=== PATIENT | female | born 1950 | race Native Hawaiian/Other Pacific Islander ===

== ENCOUNTER → 2017-08-24 20:23 | Outpatient (CLI) | payer BC | END | disposition home or self-care (01) | LOC: AMB 20:23 | DX: Z04.1 Encounter for examination and observation following transport accident (principal) ==

== ENCOUNTER 2020-06-16 13:19 | Inpatient (IN) | payer OTHER ==
[~2020-06-16] VITALS: Ht 157.5 cm; Wt 95.1 kg
[2020-06-16 13:23] VITALS: BP 187/98; TEMP 99.1
[2020-06-16 13:53] LABS: SODIUM 136 mmol/L (136-145)
[2020-06-16 14:02] LABS: PLATELET COUNT 109 K/uL (152-353)
[2020-06-16 14:19] LABS: PARTIAL THROMBOPLASTIN TIME 30.2 SECONDS (24.5-33.6)
[2020-06-16 15:10] VITALS: BP 157/79
[2020-06-16 18:15] VITALS: BP 131/72; TEMP 98.1; Ht 157.5 cm; Wt 95.1 kg
[2020-06-16] MEDS ORDERED: COLCRYS 0.6MG0.6 MG PO (18:55)
[2020-06-16] MEDS ORDERED: METO50TA63 PO (18:57)
[2020-06-16] MEDS ORDERED: INDOMETHACIN SR75 MG PO (18:58)
[2020-06-16 20:20] VITALS: BP 143/69; TEMP 98.2
[2020-06-16 23:46] VITALS: BP 119/48; TEMP 97.6
[2020-06-17 03:31] VITALS: BP 123/55; TEMP 98.1
[2020-06-17 05:25] LABS: PLATELET COUNT 87 K/uL (152-353)
[2020-06-17 06:06] LABS: POTASSIUM 4.8 mmol/L (3.6-5.2)
[2020-06-17 08:00] VITALS: BP 144/67; TEMP 98.2
--- NOTE | 2020-06-17 09:00 | NUR ---
PT IN HF RESTING. SPO2 98% ON RA. NO DISTRESS NOTED. PT PLEASANT WITH NO COMPLAINTS. NS INFUSING AT 125 ML/HR WITHOUT DIFFICULTY. BED IN LOWEST POSITION, SRX2, CALL LIGHT IN REACH, PT INSTRUCTED TO CALL WITH ANY NEEDS. PT VERBALIZES UNDERSTANDING
--- NOTE | 2020-06-17 11:11 | NUR ---
BLANCA MISHRA CALLED TO STILL OPERATOR HELPER BY ALYSSA IN LAB. DANICA TRENDING DOWN. NO NEW ORDERS AT THIS TIME
[2020-06-17 12:00] VITALS: BP 120/72; TEMP 98.2
[2020-06-17] MEDS ORDERED: CLORAZ DIPOT7.5 MG PO (15:32)
[2020-06-17] MEDS ORDERED: PERCOCET1 TA1 PO (15:33)
[2020-06-17 16:00] VITALS: BP 167/75; TEMP 97.7
[2020-06-17 20:00] VITALS: BP 151/61; TEMP 98.8
--- NOTE | 2020-06-17 21:21 | NUR ---
PTBACK TO BED AFTER HAVING BATH, DENIES PAIN, SOB. IV NOTED FLUSHED, NOTED TO BE PATENT. CALL LIGHT IN EASY REACH, WILL CONTINUE TO MONITOR.
[2020-06-18] VITALS: BP 145/63; TEMP 98.3
--- NOTE | 2020-06-18 00:16 | NUR ---
ASSISTED PT UP TO BSC. PT NOTED TO REQUIRE INCREASED TIME WITH TRANSFERS D/T GOUT. PT TEARFUL AFTER GETTING BACK IN BED B/C.
--- NOTE | 2020-06-18 01:51 | NUR ---
PT SLEEPING QUIETLY, NAD NOTED AT THIS TIME. CALL LIGHT IN EASY REACH. WILL CONTINUE TO MONITOR.
[2020-06-18 04:00] VITALS: BP 138/61; TEMP 98.6
[2020-06-18 08:00] VITALS: BP 174/76; TEMP 97.9
[2020-06-18 10:16] LABS: PLATELET COUNT 131 K/uL (152-353)
[2020-06-18 10:47] LABS: POTASSIUM 4.3 mmol/L (3.6-5.2)
[2020-06-18 12:00] VITALS: BP 147/74; TEMP 97.7
[2020-06-18 16:00] VITALS: BP 165/68; TEMP 98.8
[2020-06-18 18:38] LABS: PLATELET COUNT 132 K/uL (152-353)
[2020-06-18 20:11] VITALS: BP 163/61; TEMP 97.9
[2020-06-19 00:05] VITALS: BP 153/60; TEMP 97.8
[2020-06-19 04:00] VITALS: BP 147/61; TEMP 98.3
[2020-06-19 05:10] LABS: PLATELET COUNT 114 K/uL (152-353)
[2020-06-19 05:22] LABS: POTASSIUM 4.2 mmol/L (3.6-5.2)
--- NOTE | 2020-06-19 05:57 | NUR ---
PT RESTING IN BED WITH EYES CLOSED AT THIS TIME WITH NO C/O. IV PATENT TO LFA AND INFUSING NS AT 125 WITHOUT DIFFICULTY. PT UTILIZES BSC. HAS SOME GENERALIZED WEAKNESS DUE TO GOUT. NOTED WITH NONPRODUCTIVE COUGH. ABLE TO VOICE NEEDS/CONCERNS. HAS EPISODES OF CRYING WITH CONCERNS OF HEALTH AND OF HER HUSBANDS HEALTH. ATTEMTS MADE TO ENCOURAGE PT. NO S/S OF DISTRESS AT THIS TIME. CALL LIGHT IN EASY REACH.
[2020-06-19 08:00] VITALS: BP 192/82; TEMP 98.8
[2020-06-19 12:00] VITALS: BP 157/71; TEMP 98.1
[2020-06-19 16:00] VITALS: BP 102/90; BP 165/90; TEMP 98
--- NOTE | 2020-06-19 16:45 | NUR ---
PATIENT HAD A BLADDER INCONTINENT EPISODE. SHE WAS TRYING TO GET TO THE BSV BUT DIDNT MAKE IT. BED LINEN CHANGED. WASH BASIN SET UP FOR PATIENT TO WASH OFF.
--- NOTE | 2020-06-19 16:47 | NUR ---
PATIENT DISCONNECTED FROM IV UNTILL AFTER HER BATH
[2020-06-19 19:55] VITALS: BP 140/47; TEMP 98.9
[2020-06-20] VITALS (7 sets, daily range): BP systolic 158–200; BP diastolic 61–86; TEMP 97.9–98.6
[2020-06-20 06:02] LABS: PLATELET COUNT 111 K/uL (152-353)
--- NOTE | 2020-06-20 06:59 | NUR ---
0420 PT ALERT SITTING UP IN RECLINER DENIES C/O PAIN/DISCOMFROT AT THIS TIME. IV PATENT TO LFA INFUSING NS @ 125 WITHOUT DIFFICULTY. UTILIZED BSC WITHOUT ASSIST THIS SHIFT BUT CONT TO HAVE WEAKNESS TO BLE DUE TO GOUT. ENCOURAGED PT TO CALL FOR ASSISTANCE NEEDED WHEN GETTING OOB, VOICED UNDERSTANDING. NO S/S OF DISTRESS AT THIS TIME. CALL LIGHT IN EASY REACH.
[2020-06-20 07:25] LABS: POTASSIUM 4.5 mmol/L (3.6-5.2)
--- NOTE | 2020-06-20 11:10 | NUR ---
DR. MEZA, RISK OFFICER, AT BEDSIDE SPEAKING WITH PATIENT. PHYSICIAN INSTRUCTED PATIENT TO FOLLOW UP IN HIS OFFICE IN FOUR (4) WEEKS. PATIENT V/O UNDERSTANDING. NO NEW ORDERS RECEIVED AT THIS TIME.
--- NOTE | 2020-06-20 18:48 | NUR ---
DR. BULLARD AT BEDSIDE WITH PATIENT, NO NEW ORDERS RECEIVED AT THIS TIME.
[2020-06-21 03:58] VITALS: BP 140/81; TEMP 98.1
[2020-06-21 05:54] LABS: PLATELET COUNT 113 K/uL (152-353)
[2020-06-21 06:11] LABS: POTASSIUM 4.2 mmol/L (3.6-5.2)
== END 2020-06-21 11:40 | disposition home or self-care (01) | DRG 177 ==
LOC: ED 13:19 → MED/SURG 15:00
PROVIDERS: Family Medicine; ADMIT Hospitalist
DX: U07.1 COVID-19 (principal); J18.8 Other pneumonia, unspecified organism; N17.8 Other acute kidney failure; E46 Unspecified protein-calorie malnutrition; R30.9 Painful micturition, unspecified; R11.10 Vomiting, unspecified; I10 Essential (primary) hypertension; Z91.19 Patient's noncompliance with other medical treatment and regimen; E66.01 Morbid (severe) obesity due to excess calories; Z68.36 Body mass index [BMI] 36.0-36.9, adult; M1A.9XX1 Chronic gout, unspecified, with tophus (tophi); E86.0 Dehydration
CPT/HCPCS: 36415; 36600; 80053; 81000; 82550; 82570; 82728; 82805; 83605; 83735; 83880; 84100; 84484; 84550; 85027; 85379; 85610; 85730; 86140; 87040; 93005; 94760; 96365; 96375; 99284; J0456; J0696; J1100; J1650; J1885; J1956; J2270; J2405; J3475

== ENCOUNTER 2023-07-02 12:00 | Observation (INO) | payer OTHER ==
[2023-07-02] VITALS (7 sets, daily range): BP systolic 116–171; BP diastolic 65–85; TEMP 98.2–100.5; Ht 162.6 cm; Wt 88.6 kg
[~2023-07-02] VITALS: Ht 162.6 cm; Wt 88.6 kg
[~2023-07-02 12:00] MED LIST: CLORAZ DIPOT7.5 MG PO; COLCRYS 0.6MG0.6 MG PO; INDOMETHACIN SR75 MG PO; METO50TA63 PO; PERCOCET1 TA1 PO; PRED20TA27 PO
[2023-07-02 12:22] LABS: PLATELET COUNT 160 K/uL (152-353)
[2023-07-02 12:39] LABS: POTASSIUM 4.1 mmol/L (3.6-5.2)
[2023-07-02] MEDS ORDERED: PERCOCET1 TA3 PO (18:19)
[2023-07-02] MEDS ORDERED: CYAN10009 IM (18:20)
[2023-07-02] MEDS ORDERED: AMLODIPINE BESYLATE PO (18:20)
[2023-07-02] MEDS ORDERED: VITAMIN D50000 UNIT PO (18:20)
[2023-07-02] MEDS ORDERED: SODIUM BICAR650 MG PO (18:21)
[2023-07-02] MEDS ORDERED: LEVO-T25 MCG PO (18:21)
[2023-07-02] MEDS ORDERED: ALLO100T22 PO (18:21)
[2023-07-02] MEDS ORDERED: MYCOPHENOLAT250 MG PO (18:22)
[2023-07-03 03:48] VITALS: BP 151/83; TEMP 98
[2023-07-03 05:10] LABS: PLATELET COUNT 119 K/uL (152-353)
[2023-07-03 05:16] LABS: POTASSIUM 4.2 mmol/L (3.6-5.2)
[2023-07-03 08:00] VITALS: BP 137/90; TEMP 97.6
[2023-07-03 12:00] VITALS: BP 127/77; TEMP 98.4
== END 2023-07-03 15:24 | disposition home or self-care (01) ==
LOC: ED 12:00 → MED/SURG 13:24
PROVIDERS: Family Medicine; ADMIT Nurse Practitioner Family; ATTEND Internal Medicine Endocrinology, Diabetes & Metabolism
DX: M10.9 Gout, unspecified (principal); R52 Pain, unspecified; N17.8 Other acute kidney failure; I10 Essential (primary) hypertension; F41.8 Other specified anxiety disorders; D72.828 Other elevated white blood cell count
CPT/HCPCS: 36415; 80048; 80053; 81000; 83605; 84550; 85027; 96361; 96365; 96374; 96375; 99221; 99284; G0378; J0696; J1100; J2270; J2405